=== PATIENT | male | born 1955 | race Caucasian/White ===

== ENCOUNTER → 2023-11-21 13:21 | Outpatient (REF) | payer MEDICARE, SELFPAY | LOC: PAVMRI 13:21 | PROVIDERS: ATTENDING PHYSICIAN Specialist; FAMILY PHYSICIAN Family Medicine | DX: G95.0 Syringomyelia and syringobulbia (principal); R26.81 Unsteadiness on feet | CPT/HCPCS: 72157; A9575 ==

== ENCOUNTER → 2025-02-08 11:38 | Outpatient (REF) | payer BC, SELFPAY | LOC: RAD 11:38 | PROVIDERS: ATTENDING PHYSICIAN Family Medicine | DX: R91.1 Solitary pulmonary nodule (principal) | CPT/HCPCS: 71046 ==